=== PATIENT | female | born 1975 | race Two or more races ===

== ENCOUNTER 2017-03-06 18:23 | Emergency (ER) | payer SELFPAY ==
[~2017-03-06] VITALS: Ht 157.5 cm; Wt 97.5 kg
[2017-03-06] MEDS ORDERED: SODIUM CHLORIDE FLUSH 10ML SYR IVF ONE (19:00)
[2017-03-06 19:15] LABS: BLOOD UREA NITROGEN 16 mg/dL (7-18)
[2017-03-06 19:20] LABS: IS PT STATUS REG ER OR PRE ER? YES
[2017-03-06 20:20] LABS: PATH.CAST-FLAG NOT PRESENT; SPERM-FLAG NOT PRESENT; SRC-FLAG NOT PRESENT; XTAL-FLAG NOT PRESENT; YLC-FLAG NOT PRESENT
[2017-03-06] MEDS ORDERED: CIPROFLOXACIN 500 MG TABLET PO ONE (21:00)
[2017-03-06] MEDS ORDERED: HYDROcodone/APAP 5/325 TABLET PO ONE (21:30)
[2017-03-06 21:31] VITALS: BP 115/70
== END 2017-03-06 21:34 | disposition home or self-care (01) ==
LOC: ED 20:50
DX: N30.01 Acute cystitis with hematuria (principal); M54.5 Low back pain
CPT/HCPCS: 36415; 71010; 80048; 81001; 82040; 84484; 84703; 85025; 87086; 93005